=== PATIENT | male | born 1960 | race Caucasian/White ===

== ENCOUNTER 2022-05-15 13:46 | Emergency (ER) | payer OTHER, SELFPAY ==
[2022-05-15 13:48] VITALS: BP 160/80; PULSE 72; RESP 15; TEMP 36.5; O2SAT 99; BMI 22.1
--- NOTE | 2022-05-15 15:13 | EX.ED.VIS.EY ---
HPI History of Present Illness Chief Complaint: Eye Problem Detail of Chief Complaint: Left eye pain upper nasal quadrant Informant: patient Onset/Context/Timing Location: Left Eye Onset: Today Context: Sudden Onset Timing: Intermittent (Pain with movement) Current Severity: Gone Maximum Severity: Mild Worsened by: Movement Relieved by: Looking straight ahead Associated Symptoms Associated Symptoms - Eyes: Negative for Burning, Crusting, Drainage, Eyelid swelling, Foreign body sensation, Itching, Matting, Pain, Photophobia or Redness History of injury: No Visual correction: Glasses Narrative Narrative: Patient is a 61-year-old male who presents with left eye pain with movement. He localizes the pain to the upper nasal quadrant. He denies double vision, blurred vision loss of vision. He denies change in vision. There is no history of glaucoma. He states there is inflammation because the sclera is inflamed . He denies photophobia. There is no history of trauma. He denies rhinorrhea, congestion or postnasal drainage. He states he contacted his primary care provider who is affiliated with the [facility] and recommend that he go to the nearest emergency department. Prior similar symptoms: No Recent Illness/Hospitalization: No PFSH PFSH Home Medications alendronate 70 mg tablet (Fosamax) 70 mg PO QWEEK 05/15/22 [History Last Taken Unknown] Allergy/AdvReac Type Severity Reaction Status Date / Time No Known Allergies Allergy Verified 05/15/22 13:48 Social History (Updated 05/15/22 @ 15:[address] Haja Foote MD) household members: none Smoking Status: Never smoker substance use type: does not use ROS ROS ED Constitutional Constitutional ED: Denies chills, fever(s), subjective, sweats or weight loss Eyes Eyes: Reports other Details: Documented HPI narrative ; Denies blurry vision, change in vision or diplopia ENT ENT ED: Denies ear pain, rhinorrhea or sore throat Neurologic Neurologic: Denies headache(s), paresthesias or weakness Hematologic/Lymphatic Hematologic/Lymphatic: Denies easy bleeding or easy bruising Allergic/Immunologic Allergic/Immunologic ED: Denies mouth swelling, tongue swelling or urticaria EXAM Physical Exam Const Vital Signs: 05/15/22 13:48 Temperature 97.7 F L Temperature Source Temporal Pulse Rate 72 Respiratory Rate 15 Blood Pressure 160/80 H Blood Pressure Mean 106 Pulse Ox 99 Oxygen Delivery Method Room Air Positive well nourished and well developed General Appearance ED: well developed and NAD HEENT HEENT Narrative: Head is normocephalic. Ears normal. Nares patent. There is no facial asymmetry. atraumatic Nose: external nose normal Eyes Eyes Narrative: There is no abnormality of the lid, lash or lacrimal apparatus. Pupils equal round reactive. Extraocular muscles are intact. There is no APD. There is no photophobia to direct funduscopic exam. Cup-to-disc ratio was normal. There is no papilledema. There is no AV nicking. B venous pulsations noted bilaterally. There is slight injection of the sclera nasal side. There is no exophthalmos's. Neck no lymphadenopathy, supple and no JVD Resp normal respiratory effort Cardio regular rate and regular rhythm Neuro oriented x3, CN's II-XII intact bilaterally and moves all extremities Sensorium / Orientation: alert Psych Psych Narrative: Affect and mood are normal. Skin no wounds Lesions: no lesions Rashes: no rashes MDM MDM MDM Narrative Medical decision making narrative: Will anesthetize eye and stained with fluorescein and perform slit-lamp exam. We will also measure intraocular pressure. Differential diagnosis would include trauma, episcleritis, glaucoma, doubt orbital cellulitis. Procedures Other Procedures Procedure(s): Eyes were anesthetized with tetracaine. Eyes were stained with fluorescein. Slit lamp exam did not reveal any evidence of foreign body, corneal abrasion (see forcing uptake), corneal ulcer. There is no evidence of episcleritis. Patient did report the pain essentially resolved with application of tetracaine. His sclera slightly injected on the nasal side. Recommended artificial tears and if pain continue to follow-up with ophthalmology. Discharge Plan Triage Chief Complaint: Eye Problem ED Provider: Haja Foote Dx/Rx/DC Orders Clinical Impression: Acute left eye pain Instructions: ED Pain, Acute, Uncertain Cause Prescriptions: No Action alendronate [Fosamax] 70 mg Tablet 70 mg PO QWEEK [facility] Provider: [facility] Referrals: Sonny Arteaga MD [Med Staff - Active Staff] - 1-2 Days if not improving [facility] [Primary Care Provider] - Disposition Disposition: Home, Self Care
[2022-05-15] MEDS: Tetracaine 0.5% Ophthalmic Bottle 1 DRP LEFT EYE (15:24)
[2022-05-15] MEDS: Fluorescein 1 MG STRIP 1 STRIP LEFT EYE (15:25)
[2022-05-15 17:47] VITALS: RESP 20
== END 2022-05-15 18:33 | disposition home or self-care (01) ==
PROVIDERS: Emergency Provider Emergency Medicine; Visit Provider Emergency Medicine
DX: H57.12 Ocular pain, left eye (principal)
CPT/HCPCS: 99283